=== PATIENT | male | born 1995 | race Caucasian/White ===

== ENCOUNTER 2020-06-20 01:47 | Emergency (ER) | payer SELFPAY ==
[2020-06-20 01:52] VITALS: BP 119/69; PULSE 75; RESP 16; TEMP 36.2; O2SAT 99
--- NOTE | 2020-06-20 02:00 | ED.LOWEXIN ---
HPI - Extremity Injury (Lower) General Chief Complaint: Extremity Injury, Lower Stated Complaint: Infection in R knee. Laceration 10 days ago Time Seen by Provider: 06/20/20 01:48 Source: patient Mode of arrival: Ambulatory Limitations: no limitations History of Present Illness HPI Narrative: Patient is a 25-year-old male here for that day infection to his right knee. He states that approximately 10 days ago he sustained a cut to his right. The cut seems to be healing with a scab however there was a small amount of redness around that area this morning. He saw the clinic out on [address] and today was started on Keflex. He has taken 2 doses of this medication. He states that throughout the day the redness has spread so he came into the emergency department for evaluation. Related Data Home Medications Medication Instructions Recorded Confirmed Fish Oil (#EPA FISH OIL) 1,000 mg PO QDAY #0 08/21/11 B.ANI/L.ACI/L.LICHA/L.PLAN/L.MICKY 1 cap PO QDAY #0 10/08/11 (Probiotic Formula Capsule) Allergies Allergy/AdvReac Type Severity Reaction Status Date / Time No Known Drug Allergies Allergy Verified 06/20/20 01:55 Review of Systems Constitutional Constitutional: Denies fever(s) Musculoskeletal Musculoskeletal: Denies arthralgias Integumentary/Breasts Comments: Cut to right knee with redness Neurologic Neurologic: Denies sensory deficit Hematologic/Lymphatic Hematologic/Lymphatic: Denies easy bleeding and Denies easy bruising Patient History Medical History Healthy adult (Acute) Social History lives independently: Yes Exam Initial Vital Signs Initial Vital Signs: Vital Signs Temperature 97.1 F L 06/20/20 01:52 Pulse Rate 75 06/20/20 01:52 Respiratory Rate 16 06/20/20 01:52 Blood Pressure 119/69 06/20/20 01:52 Pulse Oximetry 99 06/20/20 01:52 Const General: cooperative and comfortable Skin Other: Patient with approximately 1 cm area what appeared to be a prior laceration to the anterior aspect just distal to the patella. There is a scab over this area now. Medial to this there is a 5 cm x 5 cm area of redness. There is no induration. No fluctuation. Extrem General: capillary refill normal Other: Full range of motion of right knee without an effusion Course Vital Signs Vital signs: Vital Signs - 8 hr 06/20/20 01:52 Temperature 97.1 F L Pulse Rate 75 Respiratory Rate 16 Blood Pressure 119/69 Pulse Oximetry 99 MDM - Extremity Injury (Lower) MDM Narrative Medical decision making narrative: Patient is nontoxic appearing. Is afebrile. No vital sign indication of sepsis. The laceration was right knee appears to be healing well however there is a area redness just medial to this. He is currently on Keflex. Has only taken 2 doses of this. His physical exam is not consistent with an abscess. Not consistent with a septic joint. Not seem consistent with septic bursitis. I outlined the area of redness with a skin marker. Informed the patient that since he has only taken 2 doses of the Keflex that I would not recommend switching him to any other medications. I do not feel we should add any further medication to his regiment. Patient did bring up the concern for osteomyelitis however have very low suspicion of this given the look of the infection of his knee. Informed him that if the redness spread outside of the line that we marked today we develop any new symptoms that he should follow up with his primary doctor about adding another medication. He seemed somewhat upset with our discussion and the fact that we were not doing more for him here in the emergency department. He did not specifically say this but through his actions and nonverbal cues feel he was somewhat upset with the interaction however I do not feel there is any further workup that needs done here in the emergency department patient certainly does not need admitted to the hospital currently. Discharge Plan Departure Patient Disposition: Home Clinical Impression: Cellulitis of lower extremity Qualifiers: Laterality: right Qualified Code(s): L03.115 - Cellulitis of right lower limb Instructions: DI for Cellulitis -- Adult Activity Restrictions/Additional Instructions: I recommend that you continue with the antibiotics as directed. You can shower like normal. If the redness starts to extend outside of the line that was drawn here in the emergency department than it is important that you follow-up with your primary doctor to discuss switching you to another antibiotic or adding an antibiotic to the 1 you are already taking. Prescriptions: No Action Fish Oil (#EPA FISH OIL) 1,000 mg PO QDAY Qty: 0 RF: 0 B.ANI/L.ACI/L.LICHA/L.PLAN/L.MICKY (Probiotic Formula Capsule) 1 cap PO QDAY Qty: 0 RF: 0 Referrals: Gene Eagle MD [Primary Care Provider] -
== END 2020-06-20 02:05 | disposition home or self-care (01) ==
PROVIDERS: Emergency Provider Emergency Medicine; Family Provider Family Medicine; PCP Family Medicine
DX: L03.115 Cellulitis of right lower limb (principal)
CPT/HCPCS: 99281

== ENCOUNTER → 2021-06-30 14:15 | Outpatient (CLI) | payer OTHER, SELFPAY ==
[2021-06-30 15:54] LABS: Urine N gonorrhoeae NOT DETECTED
[2021-06-30 15:55] LABS: Urine Chlamydia NOT DETECTED
== END ==
PROVIDERS: Family Provider Family Medicine; PCP Family Medicine; Visit Provider Physician Assistant
DX: N50.812 Left testicular pain (principal)
CPT/HCPCS: 87491; 87591

== ENCOUNTER → 2021-07-04 14:43 | Outpatient (CLI) | payer OTHER, SELFPAY ==
--- NOTE | 2021-07-04 14:44 | DI.US.S_ITS ---
PROCEDURE: US SCROTUM INDICATIONS: L>R testicular discomfort, dull ache TECHNIQUE: Real-time scanning was performed of the scrotum and testicles, with image documentation. Color and pulse Doppler interrogation was performed of both testicles. COMPARISON: None. FINDINGS: Right: Testicle is normal in size at 4.9 x 2.4 x 2.8 cm, and homogenous in echotexture. Epididymis is normal in overall size and morphology. No hydrocele or varicoceles. Overlying scrotal skin is normal in thickness. 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 Epididymis is normal in overall size and morphology. No hydrocele or varicoceles. Overlying scrotal skin is normal in thickness. Doppler: Color and pulse Doppler demonstrate normal and symmetric arterial flow in both testicles. IMPRESSION: A cause of testicular pain is not identified. Negative for testicular torsion. No intratesticular masses are seen. Dictated by: Mark Osorio M.D. on 07/04/2021 at 14:44 Approved by: Mark Osorio M.D. on 07/04/2021 at 14:45
== END ==
PROVIDERS: Family Provider Family Medicine; PCP Physician Assistant; Referring Provider Physician Assistant; Visit Provider Physician Assistant
DX: N50.819 Testicular pain, unspecified (principal)
CPT/HCPCS: 76870